=== PATIENT | female | born 1945 ===

== ENCOUNTER 2019-03-14 10:38 | Outpatient (CLI) | payer OTHER ==
[~2019-03-14] VITALS: Ht 170.2 cm; Wt 113.4 kg
== END 2019-03-14 11:00 | disposition home or self-care (01) ==
LOC: OFIC 805 10:38
DX: H61.23 Impacted cerumen, bilateral (principal); H90.3 Sensorineural hearing loss, bilateral

== ENCOUNTER 2021-08-23 16:00 | Inpatient (IN) | payer OTHER ==
[~2021-08-23] VITALS: Ht 157.5 cm; Wt 111.1 kg
[2021-08-23] MEDS ORDERED: GLIMEPIRIDE4 M1 PO (16:42)
[2021-08-23] MEDS ORDERED: GLUMETZA1000 MG PO (16:42)
[2021-08-23] MEDS ORDERED: AVAPRO300 MG PO (16:43)
--- NOTE | 2021-08-23 16:49 | NUR ---
SE RECIBE PACIENTE ALERTA Y ORIENTADA X3 QUIEN REFIERE TENER SANGRADO VAGINAL DESDE EL 24/DIC ABUNDANTE. SE MONITOREAN S/V Y SE UBICA EN OBSERVACION.
--- NOTE | 2021-08-23 18:41 | NUR ---
.AWAN EVALUA PTE. SE EDUCA A PTE SOBRE [place] MED[place]. PTE REFIERE COMPRENDER. SE REALIZAN MUESTRAS DE LABORATORIO BAJO MEDIDAS ASEPTICAS. SE NOTIFICA SONOGRAMA.
--- NOTE | 2021-08-23 20:12 | NUR ---
[place]. SE ADMINISTRA MEDICAMENTO KATIE ORDEN MEDICA.
--- NOTE | 2021-08-23 23:40 | NUR ---
SE RECIBE PTE ALERTA Y ORIENTADA X3 EN CAROLIN CON BARANDAS ELEVADAS. SE RECIBE PTE CANALIZADA AREA DELORES DE EDEMA Y DE ENROJECIMIENTO. SE RECIBE PTE CONSULTADA CON DRA.DALIA BARTH. PTE EN ESPERA DE PATTI DE MUESTRA EN AM KATIE ORDEN MEDICA.
--- NOTE | 2021-08-24 07:25 | NUR ---
SE RECIBE PACIENTE FEMENINA, ALERTA Y ORIENTADA. ACOSTADA EN CAROLIN, BARANDAS ELEVADAS POR SEGURIDAD. SE LE ORIENTA SOBRE CONTINUIDAD DE TRATAMIENTO, REFIERE ENTENDER, REFIERE NO TENER DOLOR AL MOMENTO. SE MANTIENE BAJO OBSERVACION POR CANBIOS. PENDIENTE CONSULTA CON DRA Casper BARTH.
[2021-08-24] MEDS ORDERED: VITAMIN D31250 MCG (11:14)
[2021-08-24] MEDS ORDERED: IRBESARTAN-HCT1 EAC1 (11:15)
== END 2021-08-25 13:08 | disposition home or self-care (01) | DRG 760 ==
LOC: ER 16:00 → OB/GYN 08-24 10:58
PROVIDERS: ADMIT Student in an Organized Health Care Education/Training Program; ATTEND Student in an Organized Health Care Education/Training Program
DX: N93.8 Other specified abnormal uterine and vaginal bleeding (principal); N17.8 Other acute kidney failure; N95.0 Postmenopausal bleeding; I10 Essential (primary) hypertension; E11.9 Type 2 diabetes mellitus without complications; Z79.4 Long term (current) use of insulin; E86.0 Dehydration; E87.8 Other disorders of electrolyte and fluid balance, not elsewhere classified; E83.52 Hypercalcemia; Z20.822 Contact with and (suspected) exposure to COVID-19